=== PATIENT | female | born 1955 | race Caucasian/White ===

== ENCOUNTER → 2016-06-29 | Outpatient (CLI) | payer BC | LOC: MC.RAD 14:06 | DX: Z12.31 Encounter for screening mammogram for malignant neoplasm of breast (principal) ==

== ENCOUNTER 2017-06-16 10:02 | Inpatient (IN) | payer BC ==
[~2017-06-16] VITALS: Ht 170.2 cm; Wt 95.4 kg
[2017-06-16] VITALS (446 sets, daily range): BP systolic 104–146; BP diastolic 82–101; PULSE 72–145; TEMP 97.8–98.8; O2SAT 92–100
[2017-06-16 10:55] LABS: BASO # 0.1 (0.0-0.2); BASO % 0.8 % (0.0-2.0); EOS % 0.2 % (0-4.0); GRAN # 6.8 (1.4-6.5); GRAN % 70.7 % (42.2-75.2); LYMPH # 1.6 (1.2-3.4); LYMPH % 16.9 % (20.0-51.0); MEAN CELL VOLUME 103 fl (80.0-100.0); MEAN CORPUSCULAR HGB CONC 36 g/dl (33.0-37.0); MEAN PLATELET VOLUME 9.1 fl (7.4-10.4); MONO # 1.1 (0.1-0.6); PLATELET COUNT 209 K/mm3 (130-400); RED BLOOD COUNT 5.19 M/mm3 (4.10-5.30); REDCELL DISTRIBUTION WIDTH-CV 12.6 % (11.5-14.5)
[2017-06-16 10:56] LABS: HEMATOCRIT 53.6 % (37.0-47.0); HEMOGLOBIN 19.3 g/dl (12.5-16.0); MEAN CORPUSCULAR HEMOGLOBIN 37 pg (27.0-31.0)
[2017-06-16 11:04] LABS: ALANINE AMINOTRANSFERASE 44 U/L (9-52); ALBUMIN 3.4 gm/dL (3.5-5.0); ALKALINE PHOSPHATASE 94 U/L (50-136); ANION GAP 14 mmol/L (7-16); AST,SGOT 35 U/L (15-37); BILIRUBIN,TOTAL 0.8 mg/dL (0.0-1.0); BLOOD UREA NITROGEN 7 mg/dL (7-17); CALCIUM 8.9 mg/dL (8.4-10.2); CARBON DIOXIDE 23 mmol/L (22-30); CHLORIDE 105 mmol/L (98-107); CREATININE, serum 0.64 mg/dL (0.52-1.25); GLUCOSE 118 mg/dL (74-106); POTASSIUM 3.6 mmol/L (3.4-5.0); SODIUM 142 mmol/L (137-145); TOTAL PROTEIN 7.4 gm/dL (6.4-8.2)
[2017-06-16 11:09] LABS: PROTHROMBIN TIME 11.3 SECONDS (9.7-12.8)
[2017-06-16 11:12] LABS: PARTIAL THROMBOPLASTIN TIME 36.9 SECONDS (26.0-37.0)
[2017-06-16 11:15] LABS: TROPONIN-I < 0.012 ng/mL (0.000-0.034)
[2017-06-16 12:05] LABS: MAGNESIUM 1.6 mg/dL (1.6-2.3); PHOSPHOROUS 3.5 mg/dL (2.5-4.5)
[2017-06-17] VITALS (307 sets, daily range): BP systolic 152–178; BP diastolic 83–100; PULSE 70–75; TEMP 97.7–98.7; O2SAT 77–99
[2017-06-17 05:41] LABS: BASO # 0.1 (0.0-0.2); BASO % 0.8 % (0.0-2.0); EOS # 0.1 (0.0-0.7); EOS % 0.7 % (0-4.0); GRAN % 71.8 % (42.2-75.2); HEMATOCRIT 51.9 % (37.0-47.0); LYMPH # 1.5 (1.2-3.4); LYMPH % 15.1 % (20.0-51.0); MEAN CELL VOLUME 105 fl (80.0-100.0); MEAN CORPUSCULAR HEMOGLOBIN 37 pg (27.0-31.0); MEAN CORPUSCULAR HGB CONC 36 g/dl (33.0-37.0); MEAN PLATELET VOLUME 9.2 fl (7.4-10.4); MONO # 1.1 (0.1-0.6); MONO % 11.2 % (1.7-9.3); PLATELET COUNT 198 K/mm3 (130-400); RED BLOOD COUNT 4.94 M/mm3 (4.10-5.30); REDCELL DISTRIBUTION WIDTH-CV 12.8 % (11.5-14.5)
[2017-06-17 05:53] LABS: HEMOGLOBIN 18.4 g/dl (12.5-16.0)
[2017-06-17 05:56] LABS: CALCIUM 8.4 mg/dL (8.4-10.2); CREATININE, serum 0.65 mg/dL (0.52-1.25); MAGNESIUM 1.7 mg/dL (1.6-2.3); POTASSIUM 3.4 mmol/L (3.4-5.0)
[2017-06-18 03:57] VITALS: BP 179/85; PULSE 74; TEMP 98.5
[2017-06-18 07:23] VITALS: BP 163/87; PULSE 65; TEMP 98.2
[2017-06-18 10:31] LABS: BASO # 0.1 (0.0-0.2); BASO % 0.8 % (0.0-2.0); EOS # 0.1 (0.0-0.7); EOS % 0.6 % (0-4.0); GRAN # 5.5 (1.4-6.5); GRAN % 68.7 % (42.2-75.2); HEMOGLOBIN 17.9 g/dl (12.5-16.0); LYMPH # 1.3 (1.2-3.4); LYMPH % 16.9 % (20.0-51.0); MEAN CELL VOLUME 105 fl (80.0-100.0); MEAN CORPUSCULAR HEMOGLOBIN 38 pg (27.0-31.0); MEAN CORPUSCULAR HGB CONC 36 g/dl (33.0-37.0); MEAN PLATELET VOLUME 9.2 fl (7.4-10.4); MONO % 12.6 % (1.7-9.3); PLATELET COUNT 203 K/mm3 (130-400); RED BLOOD COUNT 4.77 M/mm3 (4.10-5.30); REDCELL DISTRIBUTION WIDTH-CV 12.6 % (11.5-14.5)
[2017-06-18 11:07] VITALS: BP 176/89; PULSE 69; TEMP 98.1
[2017-06-18] MEDS ORDERED: XARELTO STARTER20 MG PO (13:08)
[2017-06-18] MEDS ORDERED: MULTAQ400 MG PO (13:10)
[2017-06-18] MEDS ORDERED: NICODERM C14 MG/PATC TD (13:10)
[2017-06-18] MEDS ORDERED: PRINIVIL5 MG PO (13:11)
[2017-06-18] MEDS ORDERED: CARDIZEM CD 18180 MG PO (13:11)
== END 2017-06-18 15:27 | disposition home or self-care (01) | DRG 308 ==
LOC: COL.ER 10:02 → ICU 11:44 → MEDICAL 06-17 12:13
PROVIDERS: Nurse Practitioner Family; Physician Assistant
DX: I48.0 Paroxysmal atrial fibrillation (principal); I26.99 Other pulmonary embolism without acute cor pulmonale; I82.411 Acute embolism and thrombosis of right femoral vein; I82.431 Acute embolism and thrombosis of right popliteal vein; I82.441 Acute embolism and thrombosis of right tibial vein; I10 Essential (primary) hypertension; F17.210 Nicotine dependence, cigarettes, uncomplicated
CPT/HCPCS: 99223-AI; 99239; J1170; J1650; J7030; J7050; Q9967

== ENCOUNTER 2018-03-11 08:07 | Day surgery (SDC) | payer BC ==
[~2018-03-11] VITALS: Ht 167.6 cm; Wt 90.5 kg
[2018-03-11] VITALS (10 sets, daily range): BP systolic 136–169; BP diastolic 79–101; PULSE 58–86; TEMP 98.1
[~2018-03-11 08:07] MED LIST: CARDIZEM CD 18180 MG PO; MULTAQ400 MG PO; NICODERM C14 MG/PATC TD; PRINIVIL5 MG PO; XARELTO STARTER20 MG PO
[2018-03-11] MEDS ORDERED: CRESTOR 10MG10 MG PO (09:12)
[2018-03-11] MEDS ORDERED: CELEBREX 200MG200 MG PO (09:12)
[2018-03-11] MEDS ORDERED: TAMBOCOR 1100 MG/TAB PO (09:13)
[2018-03-11] MEDS ORDERED: CARDIZEM CD 18180 MG PO (09:13)
[2018-03-11] MEDS ORDERED: ALDACTONE 100M100 MG PO (09:14)
[2018-03-11] MEDS ORDERED: ZESTRIL 20MG TA20 MG PO (09:14)
[2018-03-11] MEDS ORDERED: NATURE'S BLEND600 M2 PO (09:15)
[2018-03-11] MEDS ORDERED: XARELTO20 MG PO (09:15)
[2018-03-11 09:25] LABS: HEMATOCRIT 44.6 % (37.0-47.0); HEMOGLOBIN 15.9 g/dl (12.5-16.0); MEAN CELL VOLUME 101 fl (80.0-100.0); MEAN CORPUSCULAR HEMOGLOBIN 36 pg (27.0-31.0); MEAN CORPUSCULAR HGB CONC 36 g/dl (33.0-37.0); MEAN PLATELET VOLUME 9.6 fl (7.4-10.4); PLATELET COUNT 191 K/mm3 (130-400); REDCELL DISTRIBUTION WIDTH-CV 12.4 % (11.5-14.5)
[2018-03-11 09:27] LABS: PROTHROMBIN TIME 11.4 SECONDS (9.7-12.8)
[2018-03-11 09:33] LABS: CALCIUM 9.3 mg/dL (8.4-10.2); CREATININE, serum 0.65 mg/dL (0.52-1.25)
--- NOTE | 2018-03-11 10:15 | NUR ---
Pt to procedure,report to Charles Reeves.
--- NOTE | 2018-03-11 10:49 | NUR ---
POSITIVE ALLENS TEST PRIOR TO PROCEDURE. SEE MERGE DOCUMENTATION FOR MEDICATION ADMIN. TIMES
--- NOTE | 2018-03-11 15:35 | NUR ---
Discharge instructions given to pt.Pt verbalizes understanding.INT removed,catheter tip intact.
--- NOTE | 2018-03-11 15:45 | NUR ---
Pt escorted out by this nurse via wheelchair.
== END 2018-03-11 15:48 | disposition home or self-care (01) ==
LOC: COL.CAR 08:07
PROVIDERS: Internal Medicine Cardiovascular Disease
DX: R94.39 Abnormal result of other cardiovascular function study (principal); I48.0 Paroxysmal atrial fibrillation; Z79.01 Long term (current) use of anticoagulants; Z86.711 Personal history of pulmonary embolism; Z86.718 Personal history of other venous thrombosis and embolism; Z87.891 Personal history of nicotine dependence; I10 Essential (primary) hypertension; Z79.899 Other long term (current) drug therapy; Z82.3 Family history of stroke
CPT/HCPCS: J1644; J2250; J3010; Q9967

== ENCOUNTER → 2019-08-15 | Outpatient (CLI) | payer BC ==
[~2019-08-15] MED LIST changes: +ALDACTONE 100M100 MG PO; +CELEBREX 200MG200 MG PO; +CRESTOR 10MG10 MG PO; +NATURE'S BLEND600 M2 PO; +TAMBOCOR 1100 MG/TAB PO; +XARELTO20 MG PO; +ZESTRIL 20MG TA20 MG PO
== END ==
LOC: MC.RAD 15:33
DX: Z12.31 Encounter for screening mammogram for malignant neoplasm of breast (principal)

== ENCOUNTER → 2020-09-24 | Outpatient (CLI) | payer BC | LOC: MC.RAD 14:04 | DX: Z12.31 Encounter for screening mammogram for malignant neoplasm of breast (principal) ==

== ENCOUNTER 2021-08-07 13:48 | Emergency (ER) | payer BC ==
[~2021-08-07] VITALS: Ht 167.6 cm; Wt 96.8 kg
[2021-08-07 14:03] VITALS: TEMP 98.9
[2021-08-07] MEDS ORDERED: NORCO 325 MG-51 TAB PO (16:06)
[2021-08-07 16:24] VITALS: BP 131/91; PULSE 78
== END 2021-08-07 16:25 | disposition home or self-care (01) ==
LOC: COL.ER 13:48
DX: M25.512 Pain in left shoulder (principal); Z87.891 Personal history of nicotine dependence; Z98.890 Other specified postprocedural states
CPT/HCPCS: J1885

== ENCOUNTER → 2021-12-31 | Outpatient (CLI) | payer BC ==
[~2021-12-31] MED LIST changes: +NORCO 325 MG-51 TAB PO
== END ==
LOC: MC.RAD 12:56
DX: Z12.31 Encounter for screening mammogram for malignant neoplasm of breast (principal)